=== PATIENT | female | born 1990 | race Caucasian/White ===

== ENCOUNTER → 2018-09-06 14:57 | Outpatient (ROUT) | payer OTHER, SELFPAY | PROVIDERS: Visit Provider Nurse Practitioner Family | DX: K13.0 Diseases of lips (principal) | CPT/HCPCS: 87070; 87077; 87102; 87147; 87186; 87205 ==

== ENCOUNTER → 2020-07-10 17:59 | Outpatient (CLI) | payer OTHER, SELFPAY ==
--- NOTE | 2020-07-10 18:02 | DI.MRI.S_ITS ---
PROCEDURE: MR KNEE LT WO CON INDICATIONS: OTHER SPECIFIED JOINT DISORDER, LEFTKNEE TECHNIQUE: Noncontrast sagittal PD fast spin echo and T2 fast spin echo with fat saturation, sagittal 3-D FLASH with fat saturation; coronal T1 spin echo and PD fast spin echo with fat saturation, and axial PD fast spin echo with fat saturation through the knee. COMPARISON: [facility], CR, XR KNEE 3 VIEWS LEFT, 06/15/2020, 18:07. FINDINGS: Image quality: Excellent. Menisci: The medial and lateral menisci demonstrate normal morphology and internal signal. The meniscal root ligaments appear intact. Cruciate ligaments: The anterior and posterior cruciate ligaments appear intact. Medial structures: The medial collateral ligament appears intact. There is mild edema along the MCL anteriorly in the region of the medial patellofemoral ligament origin. The semimembranosus tendon insertions and meniscocapsular junction appear intact. Visualized portions of the pes anserinus tendons appear intact without associated bursal fluid collections. Lateral structures: The lateral collateral ligament, long and short heads of the biceps femoris tendon appear intact. The popliteus tendon appears intact. Iliotibial band appears normal. Anterior structures: The quadriceps and patellar tendons appear intact. Mild partial tearing is demonstrated in the medial retinaculum inferiorly along its patellar attachment. There is mild lateral tilt and shift of the patella. No femoral trochlear dysplasia or ventral trochlear prominence. Mild edema is demonstrated within the superolateral aspect of the infrapatellar fat pad. Bones and cartilage: There is peripheral bone marrow edema in the lateral femoral condyle consistent with a bone contusion without an associated discrete fracture line. Minimal bone marrow edema is also demonstrated within the inferior aspect of the medial patellar facet. The cartilage of the medial and lateral femorotibial compartments, as well as the patellofemoral compartment, appears normal in thickness. Joint space: There is physiologic knee joint fluid. No Saab's cyst. Normal appearing synovial plicae are incidentally noted. IMPRESSION: 1. Findings consistent with sequelae of transient lateral dislocation of the patella including bone contusions of the lateral femoral condyle and inferior medial patellar facet. There is mild partial tearing of the medial retinaculum along the inferior patella. 2. Slight lateral tilt and shift of the patella. Mild edema within the superolateral aspect of Hoffa's fat pad is suggestive of impingement. Dictated by: Manuel Love M.D. on 07/13/2020 at 8:13 Approved by: Manuel Love M.D. on 07/13/2020 at 8:19
== END ==
PROVIDERS: Referring Provider Orthopaedic Surgery; Visit Provider Orthopaedic Surgery
DX: M25.862 Other specified joint disorders, left knee (principal); S83.32XA Tear of articular cartilage of left knee, current, initial encounter
CPT/HCPCS: 73721

== ENCOUNTER → 2020-11-05 16:27 | Outpatient (CLI) | payer OTHER, SELFPAY | PROVIDERS: Visit Provider Physician Assistant | DX: R30.0 Dysuria (principal) | CPT/HCPCS: 87077; 87086; 87186 ==